=== PATIENT | male | born 1960 | race Caucasian/White ===

== ENCOUNTER 2023-02-25 07:17 | Outpatient (CLI) | payer OTHER | END 2023-02-25 07:18 | disposition home or self-care (01) | LOC: BICULT 07:17 | PROVIDERS: ATTEND Physician Assistant Medical | DX: K74.60 Unspecified cirrhosis of liver (principal); K76.9 Liver disease, unspecified; Z86.19 Personal history of other infectious and parasitic diseases | CPT/HCPCS: 76705 ==

== ENCOUNTER 2023-02-28 10:48 | Outpatient (CLI) | payer OTHER, SELFPAY ==
[2023-02-28] MEDS ORDERED: Iopamidol 370 76% 100 ML VIAL ONE (14:17)
== END 2023-02-28 10:49 | disposition home or self-care (01) ==
LOC: BICCT 10:48
PROVIDERS: ATTEND Physician Assistant Medical
DX: K76.9 Liver disease, unspecified (principal)
CPT/HCPCS: 74178; 82565; Q9967